=== PATIENT | male | born 1955 | race Caucasian/White ===

== ENCOUNTER 2016-11-30 08:29 | Emergency (ER) | payer OTHER ==
--- NOTE | 2016-11-30 08:29 | EDPHY ---
H & P HPI/ROS: CHIEF COMPLAINT: Chest pain, shortness of breath, near-syncope. HISTORY OF PRESENT ILLNESS: The patient is a 61-year-old male who presents via EMS after an episode of nonradiating left-sided chest pain and shortness of breath that began this morning while exercising at a self-defense class. He admits associated sudden-onset dizziness and nausea. He felt like he was going to pass out. He felt better after lying down and then drinking water. He reports that he then had a "panic attack" and notified EMS. He has no shortness of breath or chest pain on arrival. He denies neck pain, back pain, abdominal pain, fever, vomiting, diarrhea, peripheral edema, calf pain. He does report that he has not worked out as frequently over the past year. His father has atrial fibrillation. One of his uncles had a cardiac bypass and the other of cardiac issues. REVIEW OF SYSTEMS: A ten point review of systems was performed and is negative with the exception of the items mentioned in the HPI. Source: Patient Exam Limitations: No limitations - Medical/Surgical History PMH: Pneumonia. - Family History Significant Family History: Heart disease - Social History Additional Social History: 1. Nurse at the assisted. 2. Smokes half a pack of cigarettes per day. 3. Social alcohol use. 4. Lives with girlfriend. - Physical Exam Exam: General Appearance: Alert. Vital signs reviewed. BP 141/119. Eyes: Pupils equal and round, no conjunctival injection, no discharge. Anicteric. ENT, Mouth: Mucous membranes are moist, no oropharyngeal erythema or edema. Neck: No lymphadenopathy, supple. Respiratory: Lungs are clear to auscultation; no wheezes, rales, or rhonchi. Cardiovascular: Regular rate and rhythm; no murmur, rub, or gallop. Gastrointestinal: Abdomen is soft and nontender, no masses or organomegaly, bowel sounds normal. Skin: Warm and dry, no rashes on exposed skin, normal color. Back: Nontender to palpation over the thoracolumbar spine. No CVAT. Extremities: No lower extremity edema, no calf tenderness or swelling. Neurological: Alert and oriented. Moving all four extremities easily and equally. Psychiatric: Normal affect. Constitutional: Initial Vital Signs Temperature (C) 37.1 C 11/30/16 08:37 Heart Rate 87 11/30/16 08:37 Respiratory Rate 16 11/30/16 08:37 Blood Pressure 141/119 H 11/30/16 08:37 O2 Sat (%) 96 11/30/16 08:37 O2 Delivery Mode Room Air O2 (L/minute) 2 Allergies/Adverse Reactions: No Known Allergies Allergy (Unverified 11/30/16 08:42) Home Medications: Medication Instructions Recorded NK [No Known Home Meds] 11/30/16 Medical Decision Making - Diagnostics EKG Interpretation: The 12 lead EKG was interpreted by myself. See hard copy and/or "tracemaster" electronic copy for interpretation. Sinus rhythm rate 88. Left anterior fascicular block. Borderline R wave progression, anterior leads. ED Course/Re-evaluation: An IV was established and labs ordered. Chest x-ray and EKG obtained. I independently reviewed the patients imaging studies on the PACS system. No acute pulmonary disease is my interpretation. 61-year-old male with left-sided chest pain during exertion. The pain was short lived and resolved spontaneously. No acute ischemic changes on EKG. Normal chest x-ray. Troponin is normal, as are electrolytes and CBC. His blood sugar is elevated. He has no known personal cardiac risk factors other than sex and age. There is some family history of cardiac disease. His HEART score is 2 , putting him at low risk for a major cardiac event within the next 6 weeks. I feel that he can safely be discharged home to follow up with Cardiology. 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 The patient will be discharged with cardiology follow up. I discussed this plan with him and answered his questions. He is comfortable with the plan. Differential Diagnosis: Chest pain including but not limited to myocardial ischemia, pulmonary embolus, chest wall pain, pleural inflammation and pulmonary infectious causes. - Data Points Laboratory Results: Laboratory Results 11/30/16 08:30 11/30/16 08:30 Medications Given: Discontinued Medications Lorazepam (Ativan Injection) 1 mg IVP EDNOW ONE Stop: 11/30/16 09:02 Last Admin: 11/30/16 09:19 Dose: 1 mg Departure - Departure Disposition: Home, Routine, Self-Care Clinical Impression: Panic attack Chest pain Qualifiers: Chest pain type: unspecified Qualified Code(s): R07.9 - Chest pain, unspecified Condition: Good Instructions: Chest Pain (ED), Panic Attack (ED) Additional Instructions: Call Dr. Laird, cardiology, today to set up a follow up appointment. Return to the emergency department for any serious worsening of condition. Referrals: Karla Laird MD [Medical Doctor] - As per Instructions Report Scribed for: Ariana Altman Report Scribed by: Agus Rubi Date of Report: 11/30/16 Time of Report: 08:35 Physician Review and Approval Statement: 11/30/16 08:29 Portions of this note were transcribed by the medical office rep. I, Dr. Ariana Altman, personally performed the history, physical exam, and medical decision- making; and confirmed the accuracy of the information in the transcribed note.
--- NOTE | 2016-11-30 08:38 | CPEKG ---
Heart Rate: 88 RR Interval: 682 P-R Interval: 188 QRSD Interval: 110 QT Interval: 384 QTC Interval: 465 P Morganza: 47 QRS Morganza: -45 T Wave Morganza: 71 EKG Severity - ABNORMAL ECG - EKG Impression: SINUS RHYTHM EKG Impression: LEFT ANTERIOR FASCICULAR BLOCK EKG Impression: BORDERLINE R WAVE PROGRESSION, ANTERIOR LEADS Electronically Signed By: Ariana Altman 30-Nov-2016 15:41:08
[2016-11-30 08:42] VITALS: TEMP 98.8
[2016-11-30 08:50] LABS: % IMMATURE GRANULYOCYTES 0.7 % (0.0-1.1); ABSOLUTE IMMATURE GRANULOCYTES 0.06 10^3/uL (0.00-0.10); ADD DIFF? NO; ADD MORPH? NO; ADD SCAN? NO; ATYPICAL LYMPHOCYTE FLAG 10 (0-99); FRAGMENT RBC FLAG 0 (0-99); HEMOGLOBIN 17.1 g/dL (13.7-17.5); LEFT SHIFT FLG 0 (0-99); LIPEMIA HEMOLYSIS FLAG 90 (0-99); MEAN CELL HEMOGLOBIN 31.8 pg (27.9-34.1); MEAN CELL HEMOGLOBIN CONCENTR. 35.6 g/dL (32.4-36.7); MEAN CELL VOLUME 89.2 fL (81.5-99.8); PLATELET CLUMPS FLAG 10 (0-99); PLATELET COUNT 241 10^3/uL (150-400); RED BLOOD CELL COUNT 5.38 10^6/uL (4.40-6.38); RED CELL DISTRIBUTION WIDTH 12.7 % (11.5-15.2)
[2016-11-30] MEDS ORDERED: LORazepam 2 MG/ML INJ IVP ONE (09:01)
[2016-11-30 09:07] LABS: ANION GAP 16 mEq/L (8-16); CARBON DIOXIDE 20 mEq/l (22-31); CHLORIDE 108 mEq/L (97-110); CREATININE 1.2 mg/dL (0.7-1.3); GLOMERULAR FILTRATION RATE > 60; GLUCOSE 196 mg/dL (70-100); POTASSIUM 3.9 mEq/L (3.5-5.2); SODIUM 144 mEq/L (134-144)
[2016-11-30 09:18] LABS: TROPONIN I < 0.012 ng/mL (0-0.034)
[2016-11-30 10:56] VITALS: BP 134/86; PULSE 86; RESP 18; O2SAT 96
== END 2016-11-30 10:55 | disposition home or self-care (01) ==
LOC: EDUNIT#
DX: F41.0 Panic disorder [episodic paroxysmal anxiety] (principal)
CPT/HCPCS: 96374; J2060